=== PATIENT | female | born 1940 | race African-American/Black ===

== ENCOUNTER 2018-01-07 17:36 | Inpatient (IN) | payer OTHER ==
[~2018-01-07] VITALS: Ht 167.6 cm; Wt 95.6 kg
[~2018-01-07 17:36] MED LIST: NORVASC; TELM20TA
[2018-01-07 19:02] LABS: Basophils # (auto) 0 uL; Basophils % (auto) 0.1 % (0.0-2.0); Eosinophils # (auto) 0 uL; Eosinophils % (auto) 0.1 % (0.0-7.0); Hematocrit 32.1 % (36.0-46.0); Hemoglobin 10.5 g/dL (12.2-16.2); Lymphocytes # (auto) 0.9 uL; Lymphocytes % (auto) 7.6 % (10.0-50.0); Mean Corpuscular Hemoglobin 27.7 pg (28.0-32.0); Mean Corpuscular Hgb Conc. 32.7 g/dL (32.0-36.0); Mean Corpuscular Volume 84.7 fL (80.0-100.0); Monocytes # (auto) 0.5 uL; Neutrophils % (auto) 88.2 % (37.0-80.0); Platelet Count (auto) 133 10^3/uL (140-450); Red Blood Cells 3.79 10^6/uL (4.0-5.20); White Blood Cell 11.4 10^3/uL (4.4-10.8)
[2018-01-07 19:37] LABS: BUN/Creatinine Ratio 45.6; Bilirubin, Total 0.8 mg/dL (0.2-1.0); Calcium 8.1 mg/dL (8.5-10.1); Magnesium 2.3 mg/dL (1.6-2.6); Potassium 3.4 mmol/L (3.5-5.1)
[2018-01-07] MEDS ORDERED: FAMOTIDINE (10MG/ML) 2ML VL IV ONE (20:30)
[2018-01-07] MEDS ORDERED: PROMETHAZINE HCL 25 MG/ML 1ML IV ONE (20:30)
[2018-01-07] MEDS ORDERED: PANTOPRAZOLE 40 MG/10 ML VIAL IV ONE (20:30)
[2018-01-07 22:14] LABS: Urine Amorphous Crystal FEW /hpf (None Seen); Urine Bacteria NONE SEEN /hpf (None Seen); Urine Blood 1+ /uL (Negative); Urine Hyaline Cast FEW /lpf (0 - 2); Urine Specific Gravity 1.017 (1.001-1.035); Urine WBC 1 /hpf (0 - 5)
[2018-01-07 22:24] LABS: Alcohol, Urine < 3.0 mg/dL (0-5); Amphetamine Screen, Urine NEGATIVE (NEGATIVE); Barbiturate Scree,Urine NEGATIVE (NEGATIVE); Benzodiazephine Screen, Urine NEGATIVE (NEGATIVE); Cannabinoid Screen, Urine NEGATIVE (NEGATIVE); Cocaine Screen, Urine NEGATIVE (NEGATIVE); Opiate Scree,Urine NEGATIVE (NEGATIVE); Phencyclidine Screen, Urine NEGATIVE (NEGATIVE)
[2018-01-07 23:25] LABS: Amylase 61 U/L (25-115); Lipase 98 U/L (73-393)
[2018-01-07 23:58] LABS: Prothrombin Time 10.7 sec (9.27-12.13)
[2018-01-08 00:02] LABS: Partial Thromboplastin Time 20.3 sec (23.78-33.04)
[2018-01-08] MEDS ORDERED: SODIUM CHLORIDE 0.9% 1,000 ML IV SCH (00:53)
[2018-01-08] MEDS ORDERED: NITROGLYCERIN 0.4 MG SL TAB SL PRN (01:00)
[2018-01-08] MEDS ORDERED: MORPHINE SULF INJ 2 MG/ML SYRINGE 1ML IV PRN (01:00)
[2018-01-08] MEDS ORDERED: PANTOPRAZOLE 80 MG in SODIUM CHL 0.9% 60 ML IV ONE (01:00)
[2018-01-08] MEDS ORDERED: PANTOPRAZOLE 40 MG/10 ML VIAL IV ONE ×2 (01:00→01:39)
[2018-01-08] MEDS: ONDANSETRON HCL 4 MG/2 ML VIAL IV PRN ×2 (01:19→20:45)
[2018-01-08] MEDS: MORPHINE SULF INJ 2 MG/ML SYRINGE 1ML IV PRN ×2 (01:20→10:00)
[2018-01-08 01:41] LABS: Hematocrit 31.4 % (36.0-46.0); Hemoglobin 10.2 g/dL (12.2-16.2)
[2018-01-08 03:57] LABS: Basophils # (auto) 0 uL; Basophils % (auto) 0.5 % (0.0-2.0); Eosinophils # (auto) 0 uL; Hematocrit 30.6 % (36.0-46.0); Hemoglobin 10.1 g/dL (12.2-16.2); Lymphocytes # (auto) 1.9 uL; Lymphocytes % (auto) 20.1 % (10.0-50.0); Mean Corpuscular Hemoglobin 27.8 pg (28.0-32.0); Mean Corpuscular Hgb Conc. 33.1 g/dL (32.0-36.0); Monocytes # (auto) 0.7 uL; Monocytes % (auto) 7.1 % (0.0-12.0); Neutrophils # (auto) 6.7 uL; Neutrophils % (auto) 72.3 % (37.0-80.0); Platelet Count (auto) 113 10^3/uL (140-450); Red Blood Cells 3.64 10^6/uL (4.0-5.20); Red Cell Distribution Width 14.8 % (11.8-14.3); White Blood Cell 9.3 10^3/uL (4.4-10.8)
[2018-01-08 04:21] LABS: BUN/Creatinine Ratio 43.8; Potassium 3.6 mmol/L (3.5-5.1)
[2018-01-08] MEDS: SOD CHL 0.45% 1,000 ML IV SCH ×2 (09:59→18:13)
[2018-01-08 15:40] VITALS: BP 148/60
[2018-01-08 17:19] VITALS: BP 154/86
[2018-01-08] MEDS ORDERED: METOPROLOL SUCCINATE XL 50 MG TAB PO ONE (17:45)
[2018-01-08 18:55] LABS: Hematocrit 30.3 % (36.0-46.0)
[2018-01-08] MEDS ORDERED: ALPR2TAB2 PO (20:01)
[2018-01-08] MEDS ORDERED: LORA-655 PO (20:01)
[2018-01-08] MEDS ORDERED: ALPR0.5T7 PO (20:32)
[2018-01-08] MEDS: ALPRAZolam 0.5 MG TAB PO SCH (21:37)
[2018-01-08 21:55] LABS: Hematocrit 26.8 % (36.0-46.0)
[2018-01-08 22:20] VITALS: BP 114/70
[2018-01-08] MEDS: METOPROLOL SUCCINATE XL 50 MG TAB PO SCH (23:16)
[2018-01-09] MEDS ORDERED: TEMAZEPAM 15 MG CAP PO ONE (00:30)
[2018-01-09] MEDS: SOD CHL 0.45% 1,000 ML IV SCH ×2 (01:17→09:52)
[2018-01-09 04:53] VITALS: BP 126/67
[2018-01-09] MEDS ORDERED: PANTOPRAZOLE 80 MG in SODIUM CHL 0.9% 60 ML IV SCH (08:15)
[2018-01-09] MEDS ORDERED: diphenhdrAMINE HCL 50 MG/1 ML VL ONE (08:24)
[2018-01-09] MEDS ORDERED: LIDOCAINE VISCOUS 2% 15ML UD ONE (08:24)
[2018-01-09] MEDS ORDERED: SODIUM CHLORIDE LOCK 10 ML ONE (08:24)
[2018-01-09] MEDS ORDERED: FLUMAZENIL 0.1 MG/ML INJ 10ML MDV IV ONE (08:26)
[2018-01-09] MEDS ORDERED: NALOXONE HCL 0.4 MG/ML VIAL ONE (08:26)
[2018-01-09] MEDS: fentaNYL CITRATE 100 MCG/2 ML VL ONE ×3 (08:47→08:53)
[2018-01-09] MEDS: MIDAZOLAM HCL 5 MG/ML-1ML VIAL ONE ×3 (08:47→08:53)
[2018-01-09 09:00] VITALS: BP 120/71
[2018-01-09] MEDS: ONDANSETRON HCL 4 MG/2 ML VIAL IV PRN (09:50)
[2018-01-09] MEDS: METOPROLOL SUCCINATE XL 50 MG TAB PO SCH (10:05)
[2018-01-09] MEDS: ALPRAZolam 0.5 MG TAB PO SCH (10:05)
[2018-01-09 13:00] VITALS: BP 107/68
== END 2018-01-09 15:30 | disposition home or self-care (01) | DRG 377 ==
LOC: EDBD 17:36 → ER 17:42 → TELE 17:43 → TELE-CENTR 01-08 15:28
PROVIDERS: ADMIT Anesthesiology Critical Care Medicine; ATTEND Anesthesiology Critical Care Medicine
PROC: 0DB68ZX Excision of Stomach, Via Natural or Artificial Opening Endoscopic, Diagnostic (ICD-10-PCS; principal; 2018-01-09 08:43)
DX: K25.4 Chronic or unspecified gastric ulcer with hemorrhage (principal); N17.0 Acute kidney failure with tubular necrosis; K57.31 Diverticulosis of large intestine without perforation or abscess with bleeding; D64.9 Anemia, unspecified; D69.6 Thrombocytopenia, unspecified; E86.0 Dehydration; I10 Essential (primary) hypertension; K21.9 Gastro-esophageal reflux disease without esophagitis; I70.8 Atherosclerosis of other arteries; K76.89 Other specified diseases of liver; M54.30 Sciatica, unspecified side; M79.7 Fibromyalgia
CPT/HCPCS: 36415; 43239; 51702; 71045; 74176; 80048; 80053; 80307; 81001; 82140; 82150; 83690; 83735; 84484; 85014; 85018; 85025; 85610; 85730; 86850; 86900; 86901; 93005; 93306; 94761; 96365; 96375; 96376; A6257; C9113; J2250; J2405; J3490

== ENCOUNTER 2018-04-16 18:00 | Emergency (ER) | payer OTHER ==
[~2018-04-16] VITALS: Ht 167.6 cm; Wt 83.9 kg
[~2018-04-16 18:00] MED LIST changes: +ALPR0.5T7 PO; +LORA-655 PO
[2018-04-16] MEDS ORDERED: SODIUM CHLORIDE 0.9% 500 ML IV ONE (18:45)
[2018-04-16 19:09] LABS: Basophils # (auto) 0 uL; Basophils % (auto) 0.5 % (0.0-2.0); Eosinophils # (auto) 0 uL; Eosinophils % (auto) 0.8 % (0.0-7.0); Hematocrit 39.7 % (36.0-46.0); Hemoglobin 12.8 g/dL (12.2-16.2); Lymphocytes # (auto) 1.5 uL; Lymphocytes % (auto) 26.9 % (10.0-50.0); Mean Corpuscular Hemoglobin 26.4 pg (28.0-32.0); Mean Corpuscular Hgb Conc. 32.2 g/dL (32.0-36.0); Monocytes # (auto) 0.5 uL; Monocytes % (auto) 9.2 % (0.0-12.0); Neutrophils # (auto) 3.6 uL; Neutrophils % (auto) 62.6 % (37.0-80.0); Platelet Count (auto) 171 10^3/uL (140-450); Red Blood Cells 4.84 10^6/uL (4.0-5.20); Red Cell Distribution Width 16.7 % (11.8-14.3); White Blood Cell 5.7 10^3/uL (4.4-10.8)
[2018-04-16 19:18] LABS: INR 0.99 (0.9-1.15); Prothrombin Time 10.6 sec (9.27-12.13)
[2018-04-16 19:54] LABS: Albumin 3.6 g/dL (3.4-5.0); Calcium 9.3 mg/dL (8.5-10.1); Potassium 3.5 mmol/L (3.5-5.1)
[2018-04-16 19:59] LABS: BUN/Creatinine Ratio 14.7; Bilirubin, Total 0.7 mg/dL (0.2-1.0); Total Protein 8.2 g/dL (6.4-8.2)
[2018-04-16] MEDS: SODIUM CHLORIDE 0.9% 1,000 ML IV SCH ×2 (20:04→23:52)
[2018-04-16] MEDS ORDERED: DIGOXIN (250MCG/ML) 2 ML AMPULE IV ONE (20:15)
[2018-04-16] MEDS ORDERED: LORazepam 2MG/ML-1ML VIAL IV ONE (20:30)
[2018-04-16] MEDS ORDERED: ENOXAPARIN SOD 100 MG/1 ML SYRINGE SC ONE (21:45)
[2018-04-16] MEDS ORDERED: METOPROLOL TARTRATE 25 MG TAB PO ONE (22:15)
[2018-04-17 00:38] VITALS: BP 134/74
== END 2018-04-17 00:50 | disposition home or self-care (01) ==
LOC: EDBD 18:00 → ER 18:00
DX: I48.91 Unspecified atrial fibrillation (principal); N28.9 Disorder of kidney and ureter, unspecified; R79.89 Other specified abnormal findings of blood chemistry; K21.9 Gastro-esophageal reflux disease without esophagitis; R51 Headache; I10 Essential (primary) hypertension; Z87.11 Personal history of peptic ulcer disease
CPT/HCPCS: 36415; 70450; 71045; 80053; 84484; 85025; 85610; 93005; 96372; 96374; 96375; 99284; J1160; J1650; J2060; J7030

== ENCOUNTER 2018-05-01 15:14 | Emergency (ER) | payer OTHER ==
[~2018-05-01] VITALS: Ht 167.6 cm; Wt 83.9 kg
[2018-05-01] MEDS ORDERED: ASPirin 81 mg TAB PO ONE (15:45)
[2018-05-01] MEDS ORDERED: NITROGLYCERIN 0.4 MG SL TAB SL ONE (15:45)
[2018-05-01 16:36] LABS: Basophils # (auto) 0 uL; Basophils % (auto) 0.5 % (0.0-2.0); Eosinophils # (auto) 0.2 uL; Neutrophils # (auto) 2.7 uL; Red Cell Distribution Width 16.9 % (11.8-14.3); White Blood Cell 4.9 10^3/uL (4.4-10.8)
[2018-05-01 16:37] LABS: Eosinophils % (auto) 3.1 % (0.0-7.0); Hemoglobin 12.2 g/dL (12.2-16.2); Lymphocytes # (auto) 1.6 uL; Mean Corpuscular Hemoglobin 25.9 pg (28.0-32.0); Monocytes # (auto) 0.4 uL; Neutrophils % (auto) 55.4 % (37.0-80.0); Nucleated Red Blood Cells % 0.2 %; Platelet Count (auto) 153 10^3/uL (140-450)
[2018-05-01 16:48] LABS: Albumin 3.3 g/dL (3.4-5.0); BUN/Creatinine Ratio 17.1; Calcium 8.4 mg/dL (8.5-10.1); Potassium 3.4 mmol/L (3.5-5.1)
[2018-05-01 16:49] LABS: INR 0.99 (0.9-1.15); Partial Thromboplastin Time 25.5 sec (23.78-33.04); Prothrombin Time 10.6 sec (9.27-12.13)
[2018-05-01 16:52] LABS: Bilirubin, Total 0.4 mg/dL (0.2-1.0); Total Protein 7.7 g/dL (6.4-8.2)
[2018-05-01] MEDS ORDERED: POTASSIUM EFFERVESENT TAB 25 MEQ PO ONE (17:15)
[2018-05-01] MEDS ORDERED: ENOXAPARIN SOD 80 MG/0.8ML SYRINGE SC ONE (17:15)
[2018-05-01 19:31] VITALS: BP 191/104
[2018-05-01] MEDS ORDERED: LABETALOL HCL 5 MG/ML ML 20ML VIAL IV ONE ×2 (19:45)
== END 2018-05-01 20:00 | disposition home or self-care (01) ==
LOC: ER 15:14
DX: I24.9 Acute ischemic heart disease, unspecified (principal); R79.89 Other specified abnormal findings of blood chemistry; I48.91 Unspecified atrial fibrillation; J44.9 Chronic obstructive pulmonary disease, unspecified; K21.9 Gastro-esophageal reflux disease without esophagitis; I10 Essential (primary) hypertension; Z79.899 Other long term (current) drug therapy
CPT/HCPCS: 36415; 71045; 80053; 84484; 85025; 85610; 85730; 93005; 96372; 99284; J1650

== ENCOUNTER 2019-11-22 22:13 | Emergency (ER) | payer OTHER ==
[~2019-11-22] VITALS: Ht 167.6 cm; Wt 90.7 kg
[2019-11-22 22:33] VITALS: BP 197/86
[2019-11-22] MEDS ORDERED: cloNIDine HCL 0.1 MG TAB PO ONE (22:45)
== END 2019-11-23 03:01 | disposition left against medical advice (07) ==
LOC: ER 22:13
DX: M79.89 Other specified soft tissue disorders (principal); Z53.21 Procedure and treatment not carried out due to patient leaving prior to being seen by health care provider
CPT/HCPCS: 71045; 93005

== ENCOUNTER → 2019-11-23 | Emergency (ER) | payer OTHER ==
[~2019-11-23] VITALS: Ht 167.6 cm; Wt 90.7 kg
[~2019-11-23] MED LIST changes: +LORazepam 0.5 MG TAB ONE; +levoFLOXacin 500MG 100 ML IV ONE; +methylPREDNISolone SOD SUCC 125 MG/2 ML VL IV ONE
[2019-11-23 10:32] VITALS: BP 122/74
[2019-11-23 11:57] LABS: Basophils # (auto) 0 10 ^3/uL (0-0.2); Basophils % (auto) 0.2 % (0.0-2.0); Eosinophils # (auto) 0.1 10 ^3/uL (0-0.8); Hematocrit 37.7 % (36.0-46.0); Lymphocytes # (auto) 1.3 10 ^3/uL (0.4-5.4); Lymphocytes % (auto) 22.2 % (10.0-50.0); Mean Corpuscular Hemoglobin 27.7 pg (28.0-32.0); Mean Corpuscular Hgb Conc. 31.8 g/dL (32.0-36.0); Mean Corpuscular Volume 87.3 fL (80.0-100.0); Monocytes # (auto) 0.7 10 ^3/uL (0-1.3); Monocytes % (auto) 12.9 % (0.0-12.0); Neutrophils # (auto) 3.6 10 ^3/uL (1.6-8.6); Neutrophils % (auto) 63.7 % (37.0-80.0); Nucleated Red Blood Cells % 0.1 %; Platelet Count (auto) 176 10^3/uL (140-450); Red Blood Cells 4.32 10^6/uL (4.0-5.20); Red Cell Distribution Width 16.3 % (11.8-14.3); White Blood Cell 5.7 10^3/uL (4.4-10.8)
[2019-11-23 12:09] LABS: Albumin 3.2 g/dL (3.4-5.0); Calcium 8.7 mg/dL (8.5-10.1); Potassium 3.5 mmol/L (3.5-5.1)
[2019-11-23 12:11] LABS: BUN/Creatinine Ratio 14.9
[2019-11-23 12:15] LABS: Bilirubin, Total 0.7 mg/dL (0.2-1.0); Total Protein 8.2 g/dL (6.4-8.2)
[2019-11-23 12:16] LABS: Lactic Acid w/Reflex 2.5 mmol/L (0.4-2.0)
== END | disposition home or self-care (01) ==
LOC: ER 10:12
DX: J18.9 Pneumonia, unspecified organism (principal); I11.0 Hypertensive heart disease with heart failure; I50.9 Heart failure, unspecified; K21.9 Gastro-esophageal reflux disease without esophagitis; J44.9 Chronic obstructive pulmonary disease, unspecified
CPT/HCPCS: 36415; 80053; 83605; 83880; 84484; 85025; 87040; 93005

== ENCOUNTER 2019-11-25 05:23 | Emergency (ER) | payer OTHER ==
[~2019-11-25] VITALS: Ht 167.6 cm; Wt 88.5 kg
[~2019-11-25 05:23] MED LIST changes: -LORazepam 0.5 MG TAB ONE; -levoFLOXacin 500MG 100 ML IV ONE; -methylPREDNISolone SOD SUCC 125 MG/2 ML VL IV ONE
[2019-11-25 08:00] VITALS: BP 192/82
[2019-11-25] MEDS ORDERED: SODIUM CHLORIDE 0.9% 1,000 ML IV ONE (08:20)
[2019-11-25] MEDS ORDERED: LORazepam 0.5 MG TAB PO ONE (08:30)
[2019-11-25 14:44] LABS: Basophils # (auto) 0 10 ^3/uL (0-0.2); Basophils % (auto) 0.4 % (0.0-2.0); Eosinophils # (auto) 0.1 10 ^3/uL (0-0.8); Eosinophils % (auto) 1.1 % (0.0-7.0); Hematocrit 41.4 % (36.0-46.0); Hemoglobin 13.5 g/dL (12.2-16.2); Lymphocytes # (auto) 2.2 10 ^3/uL (0.4-5.4); Lymphocytes % (auto) 33.3 % (10.0-50.0); Mean Corpuscular Hemoglobin 28.4 pg (28.0-32.0); Mean Corpuscular Hgb Conc. 32.6 g/dL (32.0-36.0); Mean Corpuscular Volume 86.9 fL (80.0-100.0); Monocytes # (auto) 0.9 10 ^3/uL (0-1.3); Neutrophils # (auto) 3.5 10 ^3/uL (1.6-8.6); Neutrophils % (auto) 52.2 % (37.0-80.0); Platelet Count (auto) 181 10^3/uL (140-450); Red Blood Cells 4.77 10^6/uL (4.0-5.20); Red Cell Distribution Width 16.4 % (11.8-14.3); White Blood Cell 6.7 10^3/uL (4.4-10.8)
[2019-11-25 14:51] LABS: Albumin 3.8 g/dL (3.4-5.0); BUN/Creatinine Ratio 15.1; Calcium 9.3 mg/dL (8.5-10.1); Magnesium 2.3 mg/dL (1.6-2.6)
[2019-11-25 14:54] LABS: Total Protein 9.5 g/dL (6.4-8.2)
[2019-11-25 14:56] LABS: Potassium 2.8 mmol/L (3.5-5.1)
[2019-11-25] MEDS ORDERED: POTASSIUM EFFERVESENT TAB 25 MEQ PO ONE (15:45)
== END 2019-11-25 15:27 | disposition home or self-care (01) ==
LOC: EDBD 05:23 → ER 05:23
DX: R51 Headache (principal); M47.22 Other spondylosis with radiculopathy, cervical region; E87.6 Hypokalemia; I13.0 Hypertensive heart and chronic kidney disease with heart failure and stage 1 through stage 4 chronic kidney disease, or unspecified chronic kidney disease; N18.3 Chronic kidney disease, stage 3 (moderate); I50.9 Heart failure, unspecified; I48.91 Unspecified atrial fibrillation; K21.9 Gastro-esophageal reflux disease without esophagitis
CPT/HCPCS: 36415; 70450; 71046; 72125; 80053; 83735; 85025; 93005

== ENCOUNTER 2021-12-28 21:13 | Observation (INO) | payer OTHER ==
[~2021-12-28] VITALS: Ht 167.6 cm; Wt 86.2 kg
[2021-12-28 23:57] LABS: INR 1.03 (0.9-1.15); Partial Thromboplastin Time 23.8 sec (24.6-33.4)
[2021-12-28 23:58] LABS: Albumin 3.5 g/dL (3.4-5.0); Potassium 4.4 mmol/L (3.5-5.1)
[2021-12-29] LABS: Hematocrit 38.7 % (36.0-46.0); Hemoglobin 12.4 g/dL (12.2-16.2); Mean Corpuscular Hemoglobin 27.1 pg (28.0-32.0); Mean Corpuscular Hgb Conc. 32.1 g/dL (32.0-36.0); Mean Corpuscular Volume 84.6 fL (80.0-100.0); Red Blood Cells 4.57 10^6/uL (4.0-5.20); Red Cell Distribution Width 15.5 % (11.8-14.3); White Blood Cell 5.3 10^3/uL (4.4-10.8)
[2021-12-29 00:08] LABS: Bilirubin, Total 0.5 mg/dL (0.2-1.0); Total Protein 7.2 g/dL (6.4-8.2)
[2021-12-29 00:22] LABS: Band Neutrophils % (manual) 0; Basophils % (manual) 0 (0.0-2.0); Blast Cells 0; Metamyelocytes % 0; Myelocytes % 0; Promyelocytes % 0; Reactive Lymphocytes 0
[2021-12-29] MEDS ORDERED: ONDANSETRON HCL 4 MG/2 ML VIAL IV ONE (00:30)
[2021-12-29] MEDS ORDERED: ASPirin 81 mg TAB PO ONE (00:30)
[2021-12-29] MEDS ORDERED: MORPHINE SULFATE 4 MG/ML SYR/VIAL IV ONE (00:30)
[2021-12-29 00:39] LABS: Eosinophils % (manual) 1 (0-7); Lymphocytes % (manual) 26 (10.0-50.0); Monocytes % (manual) 12 (0-12)
[2021-12-29] MEDS ORDERED: amLODIPine BESYLATE 5 MG TAB PO ONE (03:15)
[2021-12-29] MEDS ORDERED: HEPARIN SODIUM (PORCINE) 5000 UNITS/ML 1ML VIAL IV ONE (04:30)
[2021-12-29] MEDS ORDERED: HYDROmorphone HCL 2 MG/ML VL/or syr IV ONE (06:30)
[2021-12-29 07:08] LABS: Urine Bacteria FEW /hpf (None Seen); Urine Blood Negative /uL (Negative); Urine Hyaline Cast FEW /lpf (0 - 2); Urine Mucus FEW (None Seen); Urine Specific Gravity 1.026 (1.001-1.035); Urine WBC 3 /hpf (0 - 5)
[2021-12-29] MEDS ORDERED: LABETALOL HCL 5 MG/ML 4ML SYRINGE IV PRN (07:15)
[2021-12-29] MEDS ORDERED: ACETAMINOPHEN 325 MG TAB PO PRN (07:15)
[2021-12-29] MEDS ORDERED: DOCUSATE SOD 100 MG CAP PO PRN (07:15)
[2021-12-29] MEDS ORDERED: MORPHINE SULFATE INJ 2 MG/ml SYRG IV PRN ×2 (07:15)
[2021-12-29] MEDS ORDERED: NITROGLYCERIN 0.4 MG SL TAB SL PRN (07:15)
[2021-12-29] MEDS ORDERED: ONDANSETRON HCL 4 MG/2 ML VIAL IV PRN (07:15)
[2021-12-29 07:48] LABS: Basophils # (auto) 0 10 ^3/uL (0-0.2); Basophils % (auto) 0.6 % (0.0-2.0); Eosinophils # (auto) 0.1 10 ^3/uL (0-0.8); Hematocrit 39.5 % (36.0-46.0); Monocytes # (auto) 0.7 10 ^3/uL (0-1.3); Neutrophils # (auto) 2.4 10 ^3/uL (1.6-8.6)
[2021-12-29 07:49] LABS: Eosinophils % (auto) 2.2 % (0.0-7.0); Hemoglobin 12.7 g/dL (12.2-16.2); Lymphocytes # (auto) 2.6 10 ^3/uL (0.4-5.4); Lymphocytes % (auto) 43.4 % (10.0-50.0); Mean Corpuscular Volume 84.4 fL (80.0-100.0); Monocytes % (auto) 12.4 % (0.0-12.0); Neutrophils % (auto) 41.4 % (37.0-80.0); Nucleated Red Blood Cells % 0.2 %; Red Blood Cells 4.68 10^6/uL (4.0-5.20); Red Cell Distribution Width 15.7 % (11.8-14.3); White Blood Cell 5.9 10^3/uL (4.4-10.8)
[2021-12-29 07:54] LABS: BUN/Creatinine Ratio 12.6; Calcium 8.8 mg/dL (8.5-10.1); Potassium 4.1 mmol/L (3.5-5.1)
[2021-12-29] MEDS: ASPirin-EC 81 mg tab PO SCH (09:21)
[2021-12-29] MEDS: PANTOPRAZOLE 40 MG TAB PO SCH (09:21)
[2021-12-29] MEDS: METOPROLOL TARTRATE 50 MG TAB PO SCH ×2 (09:21→22:05)
[2021-12-29] MEDS ORDERED: amLODIPine BESYLATE 5 MG TAB PO SCH (10:00)
[2021-12-29] MEDS ORDERED: HEPARIN SODIUM (PORCINE) 5000 UNITS/ML 1ML VIAL SC SCH (10:00)
[2021-12-29] MEDS ORDERED: DIGOXIN 0.25 MG TAB PO SCH (10:15)
[2021-12-29] MEDS: SUCRALFATE 1 GM TAB PO SCH ×3 (10:30→22:00)
[2021-12-29] MEDS: traMADol HCL 50 MG TAB PO PRN (11:36)
[2021-12-29] MEDS: ATORVASTATIN 20 MG TAB PO SCH (22:05)
[2021-12-30 01:58] VITALS: BP 151/88
[2021-12-30] MEDS ORDERED: AML5T PO (03:01)
[2021-12-30] MEDS ORDERED: METO-158 PO ×2 (03:02→09:22)
[2021-12-30] MEDS ORDERED: FAMO20TA10 PO (03:04)
[2021-12-30] MEDS: SUCRALFATE 1 GM TAB PO SCH ×4 (06:55→22:00)
[2021-12-30 08:03] LABS: Basophils # (auto) 0 10 ^3/uL (0-0.2); Basophils % (auto) 0.8 % (0.0-2.0); Eosinophils # (auto) 0.2 10 ^3/uL (0-0.8); Eosinophils % (auto) 4.5 % (0.0-7.0); Hematocrit 35.1 % (36.0-46.0); Hemoglobin 11.3 g/dL (12.2-16.2); Lymphocytes # (auto) 1.7 10 ^3/uL (0.4-5.4); Mean Corpuscular Hemoglobin 26.8 pg (28.0-32.0); Mean Corpuscular Hgb Conc. 32.1 g/dL (32.0-36.0); Mean Corpuscular Volume 83.5 fL (80.0-100.0); Monocytes # (auto) 0.7 10 ^3/uL (0-1.3); Monocytes % (auto) 12.6 % (0.0-12.0); Neutrophils # (auto) 2.6 10 ^3/uL (1.6-8.6); Neutrophils % (auto) 50.1 % (37.0-80.0); Nucleated Red Blood Cells % 0.1 %; Red Cell Distribution Width 15.3 % (11.8-14.3); White Blood Cell 5.2 10^3/uL (4.4-10.8)
[2021-12-30 08:33] LABS: Albumin 2.7 g/dL (3.4-5.0); Calcium 8.4 mg/dL (8.5-10.1); Potassium 4.4 mmol/L (3.5-5.1)
[2021-12-30 08:37] LABS: BUN/Creatinine Ratio 16.8; Bilirubin, Total 0.5 mg/dL (0.2-1.0); Total Protein 6.1 g/dL (6.4-8.2)
[2021-12-30 09:00] VITALS: BP 124/75
[2021-12-30] MEDS: ASPirin-EC 81 mg tab PO SCH (09:19)
[2021-12-30] MEDS: PANTOPRAZOLE 40 MG TAB PO SCH (09:20)
[2021-12-30] MEDS: METOPROLOL TARTRATE 50 MG TAB PO SCH ×2 (09:20→22:00)
[2021-12-30] MEDS ORDERED: TRAM50TA2 PO (09:22)
[2021-12-30] MEDS ORDERED: ASPI-543 PO (09:22)
[2021-12-30] MEDS ORDERED: SUCR1TAB PO (09:22)
[2021-12-30] MEDS ORDERED: ATOR20TA50 PO (09:22)
[2021-12-30] MEDS ORDERED: NITR0.4S29 SL (09:22)
[2021-12-30] MEDS ORDERED: PANT40T PO (09:22)
[2021-12-30] MEDS ORDERED: RIV15T PO (10:15)
[2021-12-30] MEDS: traMADol HCL 50 MG TAB PO PRN ×2 (10:43→18:18)
[2021-12-30] MEDS ORDERED: APIX5TAB OR (10:54)
[2021-12-30] MEDS: APIXABAN 5 MG TAB PO SCH ×2 (11:23→22:00)
[2021-12-30 13:00] VITALS: BP 140/89
[2021-12-30 16:33] VITALS: BP 144/80
[2021-12-30 20:10] VITALS: BP 144/80
[2021-12-30] MEDS: ATORVASTATIN 20 MG TAB PO SCH (22:00)
== END 2021-12-30 21:32 | disposition home health service (06) ==
LOC: EDSEX 21:13 → EDBD 21:13 → ER 21:13 → EDUNIT# 21:13 → TELE 12-29 07:09 → TELE-WESTW 12-30 01:45
PROVIDERS: ADMIT Hospitalist; ATTEND Hospitalist
DX: I21.4 Non-ST elevation (NSTEMI) myocardial infarction (principal); Z20.822 Contact with and (suspected) exposure to COVID-19; I13.2 Hypertensive heart and chronic kidney disease with heart failure and with stage 5 chronic kidney disease, or end stage renal disease; I50.9 Heart failure, unspecified; N18.5 Chronic kidney disease, stage 5; I48.0 Paroxysmal atrial fibrillation; J44.9 Chronic obstructive pulmonary disease, unspecified; D84.9 Immunodeficiency, unspecified; K27.9 Peptic ulcer, site unspecified, unspecified as acute or chronic, without hemorrhage or perforation; K21.9 Gastro-esophageal reflux disease without esophagitis; F01.50 Vascular dementia, unspecified severity, without behavioral disturbance, psychotic disturbance, mood disturbance, and anxiety; F41.9 Anxiety disorder, unspecified; M79.7 Fibromyalgia; R77.8 Other specified abnormalities of plasma proteins; Z79.82 Long term (current) use of aspirin; Z85.038 Personal history of other malignant neoplasm of large intestine; Z87.11 Personal history of peptic ulcer disease; Z90.710 Acquired absence of both cervix and uterus
CPT/HCPCS: 36415; 71045; 78582; 80048; 80053; 81001; 82962; 83880; 84484; 85025; 85027; 85379; 85610; 85730; 87426; 93005; 93306; 93970; 96374; 96375; 96376; 99285; A9540; A9558; G0378; J1170; J1644; J2270; J2405; 85007